=== PATIENT | male | born 1945 | race Caucasian/White ===

== ENCOUNTER → 2016-09-10 | Outpatient (CLI) | payer MEDICARE, OTHER ==
[~2016-09-10] MED LIST: ACETAMINOPHEN PO; ALB/IPRATROPIUM/1 E1 INH; ALPRAZOLAM0.25 MG PO; AMIODARONE PO; AMITRYPTYLINE PO; AMLODIPINE BESY10 MG PO; ASPIRIN EC81 M1 PO; ASPIRIN ENTERI325 M1 PO; ATORVASTATIN CA10 MG PO; AUGMENTIN PO; AZELASTINE205.5 MCG/ INH; BUSPAR5 MG PO; CATAPRES0.1 MG PO; CELEXA PO; CELEXA20 MG PO; CEPHALEXIN500 M1 PO; CITALOPRAM PO; CLONIDINE PO; COLACE PO; DICLOFENAC SODI50 MG PO; DUONEB 2.5-0.5 M3 ML NEB; ECOTRIN325 MG PO; FLONASE 0.05% N16 G1; FLONASE 0.05% N16 GM; HYDROCODON-ACE1 EAC9 PO; ISONIAZID300 MG PO; LEVOCETIRIZINE D5 MG PO; LEXAPRO PO; LIPITOR PO; LISINOPRIL20 MG PO; LOPRESSOR PO; LORTAB 7.5-5001 TAB PO; METAMUCIL; METHIMAZOLE5 MG PO; METOPROLOL TAR PO; NASONEX17 GM; NEURONTIN PO; NORCO 5/325 TAB1 TAB PO; NORVASC PO; PRILOSEC PO; PRILOSEC20 M1 PO; PROAIR HFA8.5 GM IH; PROAIR HFA8.5 GM INH; PROPYLTHIOURACIL PO; PROTONIX PO; SLEEP AID50 MG PO; SYMBICORT INH; UNISOM50 MG PO; VITAMIN B-650 M1; WELLBUTRIN SR PO
--- NOTE | ~2016-09-10 | CT57 ---
[facility] A Service of [facility] RADIOLOGY TEXT RESULTS PAT[facility]: [facility] #: [id number] AGE: [address]: Yunior Munoz MD SEX: M ORDER DR: [id number] [facility]. [place], [place] [address] [id number] O MR#: [id number] Acc #: [id number] NAME: JB DAVIS : 1945 SEX: M STUDY DATE/TIME: 09/10/2016 9:50 UNIT: [facility] ROOM: STUDY DESCRIPTION: CT Chest Wo Cont Attending Physician: Yunior Munoz M.D. Referring Physician: Yunior Munoz M.D. Ordering Physician: Yunior Munoz M.D. Primary Care Physician: Lindsey Berg M.D. MEDICAL IMAGING REPORT This report is preliminary unless electronic signature is present EXAM CT of the chest without contrast INDICATIONS Follow up pulmonary nodule. Previous right pneumonectomy. TECHNIQUE CT of the chest was performed without contrast. Coronal and sagittal reformatted images were obtained. This CT exam was performed with one or more of the following radiation dose reduction techniques: automatic exposure control, adjustment of mA and/or kV according to patient size, and iterative reconstruction. COMPARISON 02/21/2016 FINDINGS The previously noted [id number]-qx-njr-like nodularity within the left upper lobe has improved with some minimal residual tree-in-bud nodularity. This likely reflects an improving infectious/inflammatory process. No new nodules. Right pneumonectomy. Emphysematous changes within the left lung. No lymphadenopathy. Limited imaging of the upper abdomen is stable. The bone windows demonstrate degenerative changes of the spine. IMPRESSION The tree-in-bud nodularity in the left upper lobe has improved suggesting a resolving infectious or inflammatory process. No new nodules. Stable emphysema and stable right pneumonectomy. Dictated by... Otilio Hobbs M.D. THIS IS AN ELECTRONICALLY VERIFIED REPORT [facility] A Service of [facility] RADIOLOGY TEXT RESULTS PATIENT: JB DAVIS [facility] [birth year] UNIT #: [id number] AGE: [address]: Yunior Munoz MD SEX: M ORDER DR: Otilio Hobbs M.D. at 09/11/2016 7:35 AM ARS/to TD: 09/10/2016 11:39 JOB #: [id number] MEDICAL IMAGING REPORT Page 1 of 1 COPY
== END | disposition home or self-care (01) ==
LOC: CCAT 08:59
DX: Z08 Encounter for follow-up examination after completed treatment for malignant neoplasm (principal); R91.1 Solitary pulmonary nodule; J43.9 Emphysema, unspecified; Z90.2 Acquired absence of lung [part of]; Z85.118 Personal history of other malignant neoplasm of bronchus and lung
CPT/HCPCS: 71250